=== PATIENT | female | born 2000 ===

== ENCOUNTER → 2023-03-09 | Outpatient (CLI) | payer OTHER | END | disposition home or self-care (01) | LOC: LAB 12:05 | PROVIDERS: ATTEND Nurse Practitioner Family | DX: Z01.84 Encounter for antibody response examination (principal) | CPT/HCPCS: 86735; 86762; 86765 ==

== ENCOUNTER → 2023-10-18 | Outpatient (CLI) | payer OTHER | END | disposition home or self-care (01) | LOC: LAB 09:16 | PROVIDERS: ATTEND Nurse Practitioner Family | DX: Z01.84 Encounter for antibody response examination (principal) | CPT/HCPCS: 36415; 86706 ==